=== PATIENT | female | born 1980 | race American Indian/Alaskan Native ===

== ENCOUNTER 2018-01-16 17:25 | Emergency (ER) | payer BC ==
[2018-01-16] MEDS ORDERED: ASPIRIN PO ONE (18:23)
--- NOTE | 2018-01-16 19:42 | Emergency Department Report ---
ED Chest Pain HPI - General Chief Complaint: Chest Pain Stated Complaint: CHEST PAIN Time Seen by Provider: 01/16/18 19:41 Source: patient, EMS Mode of arrival: Stretcher Limitations: No Limitations - History of Present Illness Initial Comments: Patient said this afternoon while she was at walk she started having chest pain. When she arrived in triage, she said her blood pressure was elevated. He denies any history of hypertension. Chest pain is constant, located at the left chest wall. Patient denies any history of coronary artery disease. MD Complaint: chest pain -: Sudden, This afternoon Onset: during rest Pain Location: left chest Pain Radiation: none Severity: moderate Severity scale (0 -10): 5 Quality: heaviness Consistency: constant Improves With: nothing Worsens With: nothing re: denies: nausea, vomting, dyspnea Other Symptoms: denies: cough, fever, syncope Treatments Prior to Arrival: none Aspirin use within the Past 7 Days: (0) No - Related Data On Oral Contraceptives: No Previous Rx's Medication Instructions Recorded Last Taken Type Lisinopril/Hydrochlorothiazide 1 tab PO QDAY #30 tablet 01/16/18 Unknown Rx [Zestoretic 10-12.5 mg] Allergies Allergy/AdvReac Type Severity Reaction Status Date / Time No Known Allergies Allergy Verified 01/16/18 22:20 Heart Score - HEART Score History: Slightly suspicious EKG: Non-specific Age: < 45 Risk factors: No known risk factors Troponin: < normal limit HEART Score: 1 - Critical Actions Critical Actions: 0-3 pts:0.9-1.7%risk of adverse cardiac event.Candidate for discharge ED Review of Systems ROS: Stated complaint: CHEST PAIN Other details as noted in HPI Comment: All other systems reviewed and negative Constitutional: denies: chills, fever Eyes: denies: eye pain ENT: denies: ear pain Respiratory: denies: cough, orthopnea, shortness of breath Cardiovascular: chest pain. denies: palpitations, dyspnea on exertion, orthopnea, edema, syncope, paroxysmal nocturnal dyspnea Endocrine: no symptoms reported Gastrointestinal: denies: abdominal pain, nausea, vomiting, diarrhea Genitourinary: denies: urgency, dysuria, frequency Musculoskeletal: denies: back pain, joint swelling Skin: denies: rash, lesions Neurological: denies: headache, weakness, numbness Psychiatric: denies: anxiety, depression Hematological/Lymphatic: denies: easy bleeding, easy bruising ED Past Medical Hx - Past Medical History Previous Medical History?: Yes Hx Hypertension: Yes (W/ Pregnacy) Additional medical history: Fibriods - Surgical History Past Surgical History?: No - Social History Smoking Status: Current Some Day Smoker Substance Use Type: None - Medications Home Medications: Home Medications Medication Instructions Recorded Confirmed Last Taken Type Lisinopril/Hydrochlorothiazide 1 tab PO QDAY #30 tablet 01/16/18 Unknown Rx [Zestoretic 10-12.5 mg] ED Physical Exam - General Limitations: No Limitations General appearance: alert, in no apparent distress - Head Head exam: Present: atraumatic, normocephalic, normal inspection - Eye Eye exam: Present: normal appearance, PERRL, EOMI Pupils: Present: normal accommodation - ENT ENT exam: Present: normal exam, normal orophraynx, mucous membranes moist - Neck Neck exam: Present: normal inspection, full ROM. Absent: tenderness - Respiratory Respiratory exam: Present: normal lung sounds bilaterally. Absent: respiratory distress, wheezes, rales, rhonchi, stridor - Cardiovascular Cardiovascular Exam: Present: regular rate, normal rhythm, normal heart sounds - GI/Abdominal GI/Abdominal exam: Present: soft, normal bowel sounds. Absent: distended, tenderness, guarding, rebound, rigid - Extremities Exam Extremities exam: Present: normal inspection, full ROM, normal capillary refill. Absent: tenderness - Back Exam Back exam: Present: normal inspection, full ROM. Absent: tenderness - Neurological Exam Neurological exam: Present: alert, oriented X3, CN II-XII intact - Psychiatric Psychiatric exam: Present: normal affect, normal mood - Skin Skin exam: Present: warm, dry, intact, normal color. Absent: rash ED Course Vital Signs 01/16/18 01/16/18 01/16/18 17:46 17:53 18:00 Temperature 98.3 F Pulse Rate 75 74 74 Respiratory 14 18 15 Rate Blood Pressure 172/109 154/103 O2 Sat by Pulse 99 99 Oximetry 01/16/18 01/16/18 01/16/18 18:15 18:31 18:45 Temperature Pulse Rate 74 70 69 Respiratory 15 17 15 Rate Blood Pressure 167/112 151/70 151/70 O2 Sat by Pulse 100 99 99 Oximetry 01/16/18 01/16/18 01/16/18 19:01 19:19 19:31 Temperature Pulse Rate 75 76 70 Respiratory 16 14 12 Rate Blood Pressure 196/119 196/119 163/98 O2 Sat by Pulse 100 Oximetry 01/16/18 01/16/18 01/16/18 19:45 20:00 20:10 Temperature Pulse Rate 66 66 Respiratory 16 16 Rate Blood Pressure 170/98 178/105 175/109 O2 Sat by Pulse 100 100 Oximetry 01/16/18 01/16/18 01/16/18 20:15 20:30 20:45 Temperature Pulse Rate 68 84 71 Respiratory 18 17 11 L Rate Blood Pressure 164/95 181/154 146/104 O2 Sat by Pulse 100 99 99 Oximetry 01/16/18 01/16/18 01/16/18 21:00 21:15 21:30 Temperature Pulse Rate 65 75 64 Respiratory 16 15 15 Rate Blood Pressure 146/87 146/87 106/67 O2 Sat by Pulse 99 99 100 Oximetry 01/16/18 01/16/18 01/16/18 21:45 22:00 22:15 Temperature Pulse Rate 66 66 63 Respiratory 15 15 13 Rate Blood Pressure 107/64 102/61 116/71 O2 Sat by Pulse 99 99 99 Oximetry 01/16/18 01/16/18 22:30 22:45 Temperature Pulse Rate 64 76 Respiratory 12 16 Rate Blood Pressure 97/61 116/71 O2 Sat by Pulse 100 99 Oximetry LEX score - Lex Score Age > 65: (0) No Aspirin use within the Past 7 Days: (0) No 3 or more CAD Risk Factors: (0) No 2 or more Angina events in past 24 hrs: (0) No Known CAD with more than 50% Stenosis: (0) No Elevated Cardiac Markers: (0) No ST Deviation Greater than 0.5mm: (0) No LEX Score: 0 ED Medical Decision Making - Lab Data Result diagrams: 01/16/18 18:31 01/16/18 18:31 Lab Results 01/16/18 01/16/18 01/16/18 Range/Units 18:31 18:31 18:31 WBC 8.5 (4.5-11.0) K/mm3 RBC 5.09 H (3.65-5.03) M/mm3 Hgb 10.5 (10.1-14.3) gm/dl Hct 33.4 (30.3-42.9) % MCV 66 L (79-97) fl MCH 21 L (28-32) pg MCHC 32 (30-34) % RDW 16.0 H (13.2-15.2) % Plt Count 411 (140-440) K/mm3 Lymph % (Auto) 25.0 (13.4-35.0) % [place] % (Auto) 7.5 H (0.0-7.3) % Eos % (Auto) 1.5 (0.0-4.3) % Baso % (Auto) 0.5 (0.0-1.8) % Lymph # 2.1 (1.2-5.4) K/mm3 [place] # 0.6 (0.0-0.8) K/mm3 Eos # 0.1 (0.0-0.4) K/mm3 Baso # 0.0 (0.0-0.1) K/mm3 Seg Neutrophils % 65.5 (40.0-70.0) % Seg Neutrophils # 5.6 (1.8-7.7) K/mm3 Sodium 141 (137-145) mmol/L Potassium 3.9 (3.6-5.0) mmol/L Chloride 104.0 (98-107) mmol/L Carbon Dioxide 27 (22-30) mmol/L Anion Gap 14 mmol/L BUN 9 (7-17) mg/dL Creatinine 0.7 (0.7-1.2) mg/dL Estimated GFR > 60 ml/min BUN/Creatinine Ratio 13 % Glucose 90 (65-100) mg/dL Calcium 9.0 (8.4-10.2) mg/dL Total Bilirubin (0.1-1.2) mg/dL Direct Bilirubin (0-0.2) mg/dL Indirect Bilirubin mg/dL AST (5-40) units/L ALT (7-56) units/L Alkaline Phosphatase (35-129) units/L Troponin T < 0.010 (0.00-0.029) ng/mL Total Protein (6.3-8.2) g/dL Albumin (3.9-5) g/dL Albumin/Globulin Ratio % HCG, Qual Negative (Negative) 01/16/18 01/16/18 Range/Units 20:29 20:29 WBC (4.5-11.0) K/mm3 RBC (3.65-5.03) M/mm3 Hgb (10.1-14.3) gm/dl Hct (30.3-42.9) % MCV (79-97) fl MCH (28-32) pg MCHC (30-34) % RDW (13.2-15.2) % Plt Count (140-440) K/mm3 Lymph % (Auto) (13.4-35.0) % [place] % (Auto) (0.0-7.3) % Eos % (Auto) (0.0-4.3) % Baso % (Auto) (0.0-1.8) % Lymph # (1.2-5.4) K/mm3 [place] # (0.0-0.8) K/mm3 Eos # (0.0-0.4) K/mm3 Baso # (0.0-0.1) K/mm3 Seg Neutrophils % (40.0-70.0) % Seg Neutrophils # (1.8-7.7) K/mm3 Sodium (137-145) mmol/L Potassium (3.6-5.0) mmol/L Chloride (98-107) mmol/L Carbon Dioxide (22-30) mmol/L Anion Gap mmol/L BUN (7-17) mg/dL Creatinine (0.7-1.2) mg/dL Estimated GFR ml/min BUN/Creatinine Ratio % Glucose (65-100) mg/dL Calcium (8.4-10.2) mg/dL Total Bilirubin < 0.20 (0.1-1.2) mg/dL Direct Bilirubin < 0.2 (0-0.2) mg/dL Indirect Bilirubin 0.0 mg/dL AST 15 (5-40) units/L ALT 9 (7-56) units/L Alkaline Phosphatase 79 (35-129) units/L Troponin T < 0.010 (0.00-0.029) ng/mL Total Protein 7.1 (6.3-8.2) g/dL Albumin 3.6 L (3.9-5) g/dL Albumin/Globulin Ratio 1.0 % HCG, Qual (Negative) - EKG Data -: EKG Interpreted by Ct EKG shows normal: sinus rhythm Rate: normal (67) - EKG Data When compared to previous EKG there are: previous EKG unavailable 01/16/18 21:10 First degree AV block. No STEMI. - Radiology Data Radiology results: report reviewed, image reviewed Chest x-ray was reviewed and was unremarkable. - Medical Decision Making Patient complains of chest pain with elevated blood pressure. She has not been taking anything for high blood pressure. Clinically had chest pain seems to be coming from high blood pressure. She is not having chest pain and animal. Blood pressure was controlled with medication in the emergency room. I will discharge her home with blood pressure medicine and she can follow up with a primary care doctor for further evaluation and checkup Critical care attestation.: If time is entered above; I have spent that time in minutes in the direct care of this critically ill patient, excluding procedure time. ED Disposition Clinical Impression: Atypical chest pain Hypertension Qualifiers: Hypertension type: unspecified Qualified Code(s): I10 - Essential (primary) hypertension Disposition: - TO HOME OR SELFCARE Is pt being admited?: No Does the pt Need Aspirin: No Condition: Stable Instructions: Chest Pain (ED), Hypertension (ED) Additional Instructions: Please follow up with doctor in a Saturday morning. Addendum to the emergency room if her condition worsens. Prescriptions: Lisinopril/Hydrochlorothiazide [Zestoretic 10-12.5 mg] 1 tab PO QDAY #30 tablet Referrals: PRIMARY MD GENE [Primary Care Provider] - 3-5 Days ISACC GILL MD [Staff Physician] - 3-5 Days Forms: Work/School Release Form(ED) Time of Disposition: 22:36
[2018-01-16] MEDS ORDERED: CATAPRES PO ONE (20:03)
[2018-01-16 20:28] LABS: Basophils % (Auto) 0.5 % (0.0-1.8); Eosinophils # (Auto) 0.1 K/mm3 (0.0-0.4); Eosinophils % (Auto) 1.5 % (0.0-4.3); Hematocrit 33.4 % (30.3-42.9); Hemoglobin 10.5 gm/dl (10.1-14.3); Lymphocytes # (Auto) 2.1 K/mm3 (1.2-5.4); Mean Corpuscular HGB Conc 32 % (30-34); Monocytes # (Auto) 0.6 K/mm3 (0.0-0.8); Monocytes % (Auto) 7.5 % (0.0-7.3); Platelet Count 411 K/mm3 (140-440); Red Blood Count 5.09 M/mm3 (3.65-5.03)
[2018-01-16 20:53] LABS: Mean Corpuscular Hemoglobin 21 pg (28-32); Mean Corpuscular Volume 66 fl (79-97)
[2018-01-16 21:07] LABS: BUN/Creatinine Ratio 13; Blood Urea Nitrogen 9 mg/dL (7-17); Hemolysis Index 2
[2018-01-16 21:16] LABS: Alanine Aminotransferase 9 units/L (7-56); Albumin 3.6 g/dL (3.9-5)
[2018-01-16 21:26] LABS: Bilirubin,Direct < 0.2 mg/dL (0-0.2)
--- NOTE | 2018-01-16 22:18 | XRay Report ---
FINAL REPORT PROCEDURE: XR CHEST 1V AP TECHNIQUE: Chest radiograph anteroposterior view. CPT 07134 HISTORY: chest pain COMPARISON: No prior studies are available for comparison. FINDINGS: Heart: Normal. Mediastinum/Vessels: Normal. Lungs/Pleural space: Normal. Bony thorax: No acute osseous abnormality. Life support devices: None. IMPRESSION: No acute cardiopulmonary abnormality.
[2018-01-16 22:47] VITALS: BP 116/71
== END 2018-01-16 22:54 | disposition home or self-care (01) ==
LOC: ED 17:25
DX: R07.89 Other chest pain (principal); I10 Essential (primary) hypertension; F17.200 Nicotine dependence, unspecified, uncomplicated
CPT/HCPCS: 36415; 71045; 80048; 80074; 84484; 84703; 85025; 93005; 93010; 99285